=== PATIENT | female | born 2000 | race Caucasian/White ===

== ENCOUNTER 2023-03-21 10:53 | Emergency (ER) | payer MEDICAID, OTHER ==
[~2023-03-21] VITALS: Ht 157.5 cm; Wt 45.8 kg
[2023-03-21 11:48] LABS: Urine WBC None Seen /hpf (0 - 5)
[2023-03-21 12:14] VITALS: BP 124/73
[2023-03-21 12:31] LABS: Urine Bacteria FEW /hpf (None Seen); Urine Blood Negative /uL (Negative); Urine Specific Gravity 1.007 (1.001-1.035)
== END 2023-03-21 15:07 | disposition home or self-care (01) ==
LOC: ER 10:53
DX: Z32.01 Encounter for pregnancy test, result positive (principal); R10.2 Pelvic and perineal pain
CPT/HCPCS: 36415; 81001; 84702

== ENCOUNTER 2023-10-24 05:06 | Emergency (ER) | payer MEDICAID ==
[~2023-10-24] VITALS: Ht 157.5 cm; Wt 47.7 kg
[2023-10-24 05:46] VITALS: BP 121/72; PULSE 79; RESP 18; TEMP 97.9
[2023-10-24 07:15] VITALS: O2SAT 96
[2023-10-24] MEDS ORDERED: LIDOCAINE 1% HCL (LOCAL ANESTH.) INJ 20ML MDV IJ ONE (07:15)
[2023-10-24] MEDS ORDERED: NABU-72 PO (08:52)
[2023-10-24] MEDS ORDERED: CEPH500C PO (08:52)
== END 2023-10-24 09:07 | disposition home or self-care (01) ==
LOC: ER 05:06
DX: S61.421A Laceration with foreign body of right hand, initial encounter (principal); Z79.899 Other long term (current) drug therapy; W25.XXXA Contact with sharp glass, initial encounter; Y93.89 Activity, other specified; Y92.89 Other specified places as the place of occurrence of the external cause; Y99.8 Other external cause status
CPT/HCPCS: 12002; 73120; 73130; 99283; J2001